=== PATIENT | male | born 1975 | race Caucasian/White ===

== ENCOUNTER 2023-03-28 19:10 | Emergency (ER) | payer SELFPAY ==
[2023-03-28] MEDS ORDERED: Aspirin Chewable 81 MG TAB ONE (19:55)
== END 2023-03-28 19:13 | disposition left against medical advice (07) ==
LOC: ERS 19:10
DX: M62.82 Rhabdomyolysis (principal); N17.9 Acute kidney failure, unspecified; I10 Essential (primary) hypertension; F17.210 Nicotine dependence, cigarettes, uncomplicated
CPT/HCPCS: 96360; 96361

== ENCOUNTER 2023-03-28 19:15 | Observation (INO) | payer SELFPAY ==
[2023-03-28 20:19] LABS: ALT (SGPT) 34 U/L (8-55); AST (SGOT) 48 U/L (5-34); Albumin 4.5 g/dL (3.5-5.0); Alkaline Phosphatase 78 U/L (40-110); Anion Gap 18 mmol/L (10-20); BUN (Urea Nitrogen) 35 mg/dL (8.9-20.6); Bilirubin, Total 2.6 mg/dL (0.2-1.2); CK (CPK) 1968 U/L (30-200); Calc. Creatinine Clearance 0 mL/min (70-130); Calcium 8.8 mg/dL (7.8-10.44); Carbon Dioxide 17 mmol/L (22-29); Chloride 105 mmol/L (98-107); Estimated GFR 42; Globulin 2.7 g/dL (2.4-3.5); Glucose 136 mg/dL (70-105); Potassium 3.5 mmol/L (3.5-5.1); Protein, Total 7.2 g/dL (6.0-8.3); Sodium 136 mmol/L (136-145)
[2023-03-28] MEDS ORDERED: Ondansetron ODT 4 MG TAB PO PRN (20:20)
[2023-03-28] MEDS ORDERED: Senokot S 8.6-50 MG TAB PO PRN (20:20)
[2023-03-28] MEDS ORDERED: Calcium Carbonate 500 MG ChewTAB PO PRN (20:20)
[2023-03-28] MEDS ORDERED: Acetaminophen 325 MG TAB PO PRN (20:20)
[2023-03-28] MEDS ORDERED: Sodium Bicarb 50 MEQ/50 ML VIAL IVP SCH (20:30)
[2023-03-28] MEDS ORDERED: Famotidine 20 MG TAB PO SCH (21:00)
[2023-03-28] MEDS: Lactated Ringer's 1,000 ML IV SCH (21:54)
[2023-03-28 22:04] VITALS: BMI 23.7
[2023-03-29 04:19] VITALS: BP 111/65; TEMP 98.4
[2023-03-29] MEDS: Lactated Ringer's 1,000 ML IV SCH (06:05)
[2023-03-29 06:51] LABS: #Eosinphils 0.1 thou/uL (0.0-0.7); #Monocytes 1.3 thou/uL (0.11-0.59); #Neutrophils 5.9 thou/uL (1.40-6.50); %Basophils 0.5 % (0.0-1.0); %Eosinophils 0.7 % (0.0-10.0); %Lymphocytes 13.8 % (21.0-51.0); %Monocytes 14.9 % (0.0-10.0); %Neutrophils 69.9 % (42.0-75.0); Hematocrit 41.3 % (42.0-52.0); Mean Corpuscular HGB CONC 33.9 g/dL (32.0-36.0); Mean Corpuscular Hemoglobin 29.4 pg (27.0-31.0); Mean Corpuscular Volume 86.8 fl (78.0-98.0); Mean Platelet Volume 10.6 fL (7.4-10.4); Platelet Count 209 10x3/uL (130-400); RBC Distribution Width 13.2 % (11.5-14.5); Red Blood Cell (RBC) Count 4.76 mill/uL (4.70-6.10); White Blood Cell (WBC) Count 8.5 10x3/uL (4.8-10.8)
[2023-03-29 07:17] LABS: Anion Gap 11 mmol/L (10-20); BUN (Urea Nitrogen) 32 mg/dL (8.9-20.6); Calc. Creatinine Clearance 88 mL/min (70-130); Calcium 8.7 mg/dL (7.8-10.44); Carbon Dioxide 25 mmol/L (22-29); Chloride 106 mmol/L (98-107); Estimated GFR 81; Glucose 114 mg/dL (70-105); Potassium 3.4 mmol/L (3.5-5.1); Sodium 139 mmol/L (136-145)
== END 2023-03-29 08:29 | disposition home or self-care (01) ==
LOC: ERS 19:15 → 2SW 20:07
PROVIDERS: ADMIT Student in an Organized Health Care Education/Training Program; ATTEND Student in an Organized Health Care Education/Training Program
DX: N17.9 Acute kidney failure, unspecified (principal); M62.82 Rhabdomyolysis; I10 Essential (primary) hypertension; E86.0 Dehydration; E80.6 Other disorders of bilirubin metabolism; R07.9 Chest pain, unspecified; F17.210 Nicotine dependence, cigarettes, uncomplicated
CPT/HCPCS: 36415; 80048; 85025; 93005; 96360; 96361; 96374; 96375; G0378; J7120